=== PATIENT | female | born 1965 | race Caucasian/White ===

== ENCOUNTER → 2017-03-20 | Outpatient (CLI) | payer BC ==
[2017-03-20 19:34] LABS: ALT 36 U/L (9-52); AST 27 U/L (14-36); Alkaline Phosphatase 91 U/L (38-126); Anion Gap 11 mmol/L; Blood Urea Nitrogen 18 mg/dL (7-17); Calcium 9.9 mg/dL (8.4-10.2); Carbon Dioxide 29 mmol/L (22-30); Chloride 102 mmol/L (98-107); Cholesterol 226 mg/dL (<200); Glucose 88 mg/dL (74-99); HDL Cholesterol 90 mg/dL (40-60); Non-African American GFR(MDRD) >60 (>60 ml/min/1.73 sqM); Potassium 4.6 mmol/L (3.5-5.1); Sodium 142 mmol/L (137-145); Total Bilirubin 0.8 mg/dL (0.2-1.3); Total Protein 7.6 g/dL (6.3-8.2); Triglycerides 85 mg/dL (<150)
[2017-03-20 20:40] LABS: Vitamin B12 287 pg/mL (239-931)
[2017-03-20 22:30] LABS: Basophils % (A) 0 %; CH 28.8; CHCM 32.8; Eosinophils # (A) 0.2 k/uL (0-0.7); Eosinophils % (A) 2 %; HCT 47.2 % (34.0-46.0); HDW 2.45; HGB 15.7 gm/dL (11.4-16.0); Luc # (Auto) 0.17; Luc % (Auto) 2; Lymphocytes # (A) 1.7 k/uL (1.0-4.8); Lymphocytes % (A) 23 %; MCH 29.3 pg (25.0-35.0); MCHC 33.2 g/dL (31.0-37.0); MCV 88.2 fL (80.0-100.0); Mean Platelet Volume 7.7; Monocytes # (A) 0.5 k/uL (0-1.0); Monocytes % (A) 6 %; Neutrophils # (A) 4.8 k/uL (1.3-7.7); Neutrophils % (A) 66 %; RBC 5.36 m/uL (3.80-5.40); RDW 12.7 % (11.5-15.5); WBC 7.2 k/uL (3.8-10.6); WBC (Perox) 7.09
== END ==
LOC: MMGSC 12:25
PROVIDERS: ATTEND Family Medicine
DX: Z00.00 Encounter for general adult medical examination without abnormal findings (principal); N39.0 Urinary tract infection, site not specified; Z83.2 Family history of diseases of the blood and blood-forming organs and certain disorders involving the immune mechanism
CPT/HCPCS: 36415; 80053; 80061; 81241; 82607; 82746; 83090; 84439; 84443; 85025; 87086

== ENCOUNTER → 2018-01-22 | Outpatient (CLI) | payer BC ==
[2018-01-22 18:42] LABS: Basophils % (A) 0 %; Eosinophils # (A) 0.2 k/uL (0-0.7); Eosinophils % (A) 3 %; HCT 45.7 % (34.0-46.0); HGB 14.4 gm/dL (11.4-16.0); Lymphocytes # (A) 1.4 k/uL (1.0-4.8); Lymphocytes % (A) 21 %; MCH 27.7 pg (25.0-35.0); MCHC 31.4 g/dL (31.0-37.0); Mean Platelet Volume 7.4; Monocytes # (A) 0.4 k/uL (0-1.0); Monocytes % (A) 6 %; Neutrophils # (A) 4.4 k/uL (1.3-7.7); Neutrophils % (A) 68 %; Platelet Count 324 k/uL (150-450); RDW 13.2 % (11.5-15.5); WBC 6.5 k/uL (3.8-10.6)
[2018-01-22 18:48] LABS: ALT 30 U/L (9-52); AST 28 U/L (14-36); Albumin 4.3 g/dL (3.5-5.0); Alkaline Phosphatase 80 U/L (38-126); Anion Gap 11 mmol/L; Blood Urea Nitrogen 18 mg/dL (7-17); Calcium 9.6 mg/dL (8.4-10.2); Carbon Dioxide 28 mmol/L (22-30); Chloride 104 mmol/L (98-107); Cholesterol 206 mg/dL (<200); Glucose 94 mg/dL (74-99); HDL Cholesterol 84 mg/dL (40-60); LDL Cholesterol,Calculated 109 mg/dL (0-99); Potassium 4.5 mmol/L (3.5-5.1); Sodium 143 mmol/L (137-145); Total Bilirubin 0.7 mg/dL (0.2-1.3); Total Protein 7.2 g/dL (6.3-8.2); Triglycerides 65 mg/dL (<150)
[2018-01-22 18:58] LABS: T4, Free (Free Thyroxine) 0.95 ng/dL (0.78-2.19)
== END | disposition home or self-care (01) ==
LOC: MMGSC 09:35
PROVIDERS: ATTEND Family Medicine
DX: Z00.00 Encounter for general adult medical examination without abnormal findings (principal); R53.83 Other fatigue
CPT/HCPCS: 36415; 80053; 80061; 82306; 84439; 84443; 85025

== ENCOUNTER 2018-05-13 10:05 | Observation (INO) | payer BC ==
[2018-05-13] MEDS ORDERED: ASPIRIN 81 MG PO STA (10:10)
--- NOTE | 2018-05-13 10:24 | ED ---
Chest Pain HPI - General Chief Complaint: Chest Pain Stated Complaint: chest discomfort Time Seen by Provider: 05/13/18 10:10 Source: EMS Mode of arrival: EMS Limitations: no limitations - History of Present Illness Initial Comments: Patient presents with complaints of chest pressure on the left side. She also had some nausea, diaphoresis. She also had a syncopal episode this morning. She denies any belly or back pain. She has no pain or swelling in the legs or arms. She has no palpitations. She is tolerating oral intake. She denies any sick contacts or travel. She states that the syncopal episode, as well as an episode of bradycardia, occurred after using the bathroom. She denies any neck pain or stiffness. She has no change in vision or hearing. - Related Data Home Medications Medication Instructions Recorded Confirmed Ascorbic Acid [Vitamin C] 500 mg PO HS 05/13/18 05/13/18 Calcium/Magnesium 1 tab PO HS 05/13/18 05/13/18 Cholecalciferol [Vitamin D3] 1,000 unit PO HS 05/13/18 05/13/18 Allergies Allergy/AdvReac Type Severity Reaction Status Date / Time No Known Allergies Allergy Verified 05/13/18 10:48 Review of Systems ROS Statement: Those systems with pertinent positive or pertinent negative responses have been documented in the HPI. ROS Other: All systems not noted in ROS Statement are negative. EKG Findings - EKG Comments: EKG Findings:: Twelve-lead EKG shows ventricular rate 74 bpm, normal [place] interval and QRS complexes, no ST elevation or depression, interpreted by me as normal sinus rhythm. Past Medical History History of Any Multi-Drug Resistant Organisms: None Reported Past Surgical History: Hernia Repair Additional Past Surgical History / Comment(s): right mastectomy Past Psychological History: Anxiety Smoking Status: Never smoker Past Alcohol Use History: Daily Past Drug Use History: None Reported General Exam Limitations: no limitations General appearance: alert, in no apparent distress Head exam: Present: atraumatic, normocephalic, normal inspection Eye exam: Present: normal appearance, PERRL, EOMI. Absent: scleral icterus, conjunctival injection, periorbital swelling ENT exam: Present: normal exam, mucous membranes moist Neck exam: Present: normal inspection. Absent: tenderness, meningismus, lymphadenopathy Respiratory exam: Present: normal lung sounds bilaterally. Absent: respiratory distress, wheezes, rales, rhonchi, stridor Cardiovascular Exam: Present: regular rate, normal rhythm, normal heart sounds. Absent: systolic murmur, diastolic murmur, rubs, gallop, clicks GI/Abdominal exam: Present: soft, normal bowel sounds. Absent: distended, tenderness, guarding, rebound, rigid Extremities exam: Present: normal inspection, full ROM, normal capillary refill. Absent: tenderness, pedal edema, joint swelling, calf tenderness Back exam: Present: normal inspection Neurological exam: Present: alert, oriented X3, CN II-XII intact Psychiatric exam: Present: normal affect, normal mood Skin exam: Present: warm, dry, intact, normal color. 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 EKG is unremarkable. Laboratory studies were outside hospital are normal. Patient will be admitted to the hospital. Disposition Clinical Impression: Chest pain Disposition: ADMITTED IP TO THIS HOSP Condition: Fair Is patient prescribed a controlled substance at d/c from ED?: No Referrals: Maxine Beck MD [Primary Care Provider] - 1-2 days
[2018-05-13 10:52] LABS: Basophils % (A) 0 %; Eosinophils # (A) 0.1 k/uL (0-0.7); Eosinophils % (A) 1 %; HGB 14.7 gm/dL (11.4-16.0); Lymphocytes # (A) 1.2 k/uL (1.0-4.8); Lymphocytes % (A) 12 %; MCHC 33.5 g/dL (31.0-37.0); MCV 86.5 fL (80.0-100.0); Mean Platelet Volume 6.8; Monocytes # (A) 0.3 k/uL (0-1.0); Monocytes % (A) 3 %; Neutrophils # (A) 8.1 k/uL (1.3-7.7); Neutrophils % (A) 83 %; Platelet Count 371 k/uL (150-450); RBC 5.08 m/uL (3.80-5.40); RDW 13.5 % (11.5-15.5); WBC 9.8 k/uL (3.8-10.6)
[2018-05-13 11:02] LABS: ALT 45 U/L (9-52); AST 30 U/L (14-36); Alkaline Phosphatase 64 U/L (38-126); Blood Urea Nitrogen 17 mg/dL (7-17); Chloride 109 mmol/L (98-107); Glucose 116 mg/dL (74-99); Magnesium 1.7 mg/dL (1.6-2.3); Potassium 4.5 mmol/L (3.5-5.1); Sodium 145 mmol/L (137-145); Total Bilirubin 0.5 mg/dL (0.2-1.3); Total Protein 6.6 g/dL (6.3-8.2)
[2018-05-13 11:04] LABS: Appearance,Urine Clear (Clear); Bilirubin,Urine Negative (Negative); Blood,Urine Negative (Negative); Color,Urine Colorless; Glucose,Urine (UA) Negative (Negative); Ketones,Urine Negative (Negative); Leukocyte Esterase,Urine Trace (Negative); Mucus,Urine Rare /hpf; Nitrite,Urine Negative (Negative); PH, Urine 6.5 (5.0-8.0); Protein,Urine Negative (Negative); Specific Gravity,Urine 1.008 (1.001-1.035); Squamous Epithelial Cell,Urine <1 /hpf (0-4); Urobilinogen,Urine <2.0 mg/dL (<2.0); WBC,Urine 2 /hpf (0-5)
[2018-05-13 11:06] LABS: Partial Thromboplastin Time 75.8 sec (22.0-30.0)
--- NOTE | 2018-05-13 11:15 | XR ---
EXAMINATION TYPE: XR chest 2V DATE OF EXAM: 05/13/2018 COMPARISON: NONE HISTORY: Chest pain TECHNIQUE: Frontal and lateral views of the chest are obtained. FINDINGS: There is no focal air space opacity, pleural effusion, or pneumothorax seen. The cardiac silhouette size is within normal limits. The osseous structures are intact. IMPRESSION: No acute cardiopulmonary process.
[2018-05-13 11:36] LABS: Anion Gap 15 mmol/L; Carbon Dioxide 21 mmol/L (22-30)
[2018-05-13] MEDS ORDERED: ACETAMINOPHEN TAB 325 MG TAB PO PRN (12:45)
[2018-05-13] MEDS ORDERED: NALOXONE 0.4 MG/ML 1 ML VIAL IV PRN (12:45)
[2018-05-13] MEDS ORDERED: traMADol 50 MG TAB PO PRN (12:45)
[2018-05-13] MEDS ORDERED: REGADENOSON 0.4 MG/5 ML SYRINGE IV ONE (12:53)
[2018-05-13] MEDS ORDERED: AMINOPHYLLINE 500 MG/20 ML VIAL IV PRN (12:53)
--- NOTE | 2018-05-13 12:56 | P.HPIM ---
History of Present Illness H&P Date: 05/13/18 Chief Complaint: Chest pain 53-year-old female with no significant past medical history presented to emergency department because of intermittent chest pressure on the left side. It started around 5 AM in the morning when she was going back to her bed from the bathroom. It was associated with some nausea, diaphoresis, severe dizziness as well as a syncopal episode this morning. Her held her from falling and immediately she regained consciousness. Chest pain doesn't radiate anywhere. She never had before. She denies any belly or back pain. She has no pain or swelling in the legs or arms. She has no palpitations. She denies any sick contacts or travel. When EMS arrived they found her heart rate to be in the 30s according to the . No urinary symptoms, no focal weakness or numbness, no slurred speech. No blurry or double vision. Review of Systems 12 point review of system performed, negative except for HPI Past Medical History Additional Past Medical History / Comment(s): History of breast cancer status post resection History of Any Multi-Drug Resistant Organisms: None Reported Past Surgical History: Hernia Repair Additional Past Surgical History / Comment(s): right mastectomy Past Psychological History: Anxiety Smoking Status: Never smoker Past Alcohol Use History: Daily Past Drug Use History: None Reported - Past Family History Mother Family Medical History: Coronary Artery Disease (CAD) Medications and Allergies Home Medications Medication Instructions Recorded Confirmed Type Ascorbic Acid [Vitamin C] 500 mg PO HS 05/13/18 05/13/18 History Calcium/Magnesium 1 tab PO 05/13/18 05/13/18 History Cholecalciferol [Vitamin D3] 1,000 unit PO 05/13/18 05/13/18 History Allergies Allergy/AdvReac Type Severity Reaction Status Date / Time No Known Allergies Allergy Verified 05/13/18 10:48 Physical Exam Vitals: Vital Signs Temp Pulse Pulse Resp BP Pulse Ox 05/13/18 12:42 74 18 119/73 98 05/13/18 10:46 72 05/13/18 10:08 97.7 F 83 18 122/77 96 Intake and Output 05/12/18 05/13/18 05/13/18 22:59 06:59 14:59 Other: Weight 70.307 kg Constitutional: No acute distress, conversant, pleasant Eyes:Anicteric sclerae, moist conjunctiva, no lid-lag, PERRLA, ENMT: Oropharynx clear, no erythema, exudates Neck: Supple, FROM, no masses, or JVD, No carotid bruits, No thyromegaly Lungs: Clear to auscultation, Clear to percussion, Normal respiratory effort, no accessory muscle use Cardiovascular: Heart regular in rate and rhythm, No murmurs, gallops, or rubs, No peripheral edema Abdominal: Soft, Nontender, no guarding, rebound or rigidity, Normoactive bowel sounds, No hepatomegaly, No splenomegaly, No palpable mass Skin: Normal temperature, tone, texture, turgor, no induration, No subcutaneous nodules, No rash, lesions, No ulcers Extremities: No digital cyanosis, No clubbing, Pedal pulses intact and symmetrical, Radial pulses intact and symmetrical, No calf tenderness Psychiatric: Alert and oriented to person, place and time, appropriate affect, intact judgement Neuro: Muscles Strength 5/5 in all 4 extremities, Sensation to light touch grossly present throughout, Cranial nerves II-XII grossly intact, no focal sensory deficits Results CBC & Chem 7: 05/13/18 10:34 05/13/18 10:34 Labs: Abnormal Lab Results - Last 24 Hours (Table) 05/13/18 05/13/18 05/13/18 Range/Units 10:34 10:34 10:34 Neutrophils # 8.1 H (1.3-7.7) k/uL APTT 75.8 H (22.0-30.0) sec Chloride 109 H (98-107) mmol/L Carbon Dioxide 21 L (22-30) mmol/L Glucose 116 H (74-99) mg/dL Ur Leukocyte Esterase (Negative) Urine Mucus (None) /hpf 05/13/18 Range/Units 10:34 Neutrophils # (1.3-7.7) k/uL APTT (22.0-30.0) sec Chloride (98-107) mmol/L Carbon Dioxide (22-30) mmol/L Glucose (74-99) mg/dL Ur Leukocyte Esterase Trace H (Negative) Urine Mucus Rare H (None) /hpf Assessment and Plan Plan: Acute chest pain/syncope Initial troponin negative, and EKG reviewed, no acute changes Cycle troponins Admit to observation on telemetry Echocardiogram Stress test Cardio consult Health maintenance Check TSH, A1c, lipid profile Blood pressure is stable
[2018-05-13 19:53] LABS: Hemoglobin A1C 5.9 % (4.0-6.0)
[2018-05-14 07:30] LABS: Basophils % (A) 0 %; Eosinophils # (A) 0.1 k/uL (0-0.7); Eosinophils % (A) 2 %; HCT 44.8 % (34.0-46.0); HGB 14.7 gm/dL (11.4-16.0); Lymphocytes # (A) 2.1 k/uL (1.0-4.8); Lymphocytes % (A) 25 %; MCHC 32.9 g/dL (31.0-37.0); MCV 88.1 fL (80.0-100.0); Mean Platelet Volume 6.5; Monocytes # (A) 0.6 k/uL (0-1.0); Monocytes % (A) 7 %; Neutrophils # (A) 5.5 k/uL (1.3-7.7); Neutrophils % (A) 65 %; Platelet Count 338 k/uL (150-450); RBC 5.08 m/uL (3.80-5.40); RDW 14.3 % (11.5-15.5); WBC 8.5 k/uL (3.8-10.6)
[2018-05-14 07:44] LABS: ALT 46 U/L (9-52); AST 30 U/L (14-36); Albumin 4.4 g/dL (3.5-5.0); Alkaline Phosphatase 70 U/L (38-126); Anion Gap 12 mmol/L; Blood Urea Nitrogen 15 mg/dL (7-17); Calcium 9.7 mg/dL (8.4-10.2); Carbon Dioxide 24 mmol/L (22-30); Chloride 105 mmol/L (98-107); Glucose 99 mg/dL (74-99); Magnesium 1.9 mg/dL (1.6-2.3); Phosphorus 4.1 mg/dL (2.5-4.5); Potassium 4.4 mmol/L (3.5-5.1); Sodium 141 mmol/L (137-145); Total Bilirubin 0.6 mg/dL (0.2-1.3)
--- NOTE | 2018-05-14 11:11 | P.CRDCN ---
History of Present Illness History of present illness: Mrs. Almanzar is a pleasant 53-year-old female past medical history significant for breast cancer status post mastectomy and reconstruction. She denies history of coronary artery disease and has never seen a position description manager for any reason. We have been asked to see her in consultation for chest pain. She states she woke up around 0300 with an ache in the left anterior chest wall. She walked and used the bathroom without incident. She woke up again around 0530 with a similar ache in her chest but this time she felt nauseated as well. She walked to the restroom and her walked with her. Next thing she can recall she passed out and he caught her. She denies palpitations, dizziness or diaphoresis prior to passing out. She went to the ED at [facility] and while she was transferring from the bed to the commode she started to feel nauseated again and they told her her heart rate went down to 30. She was sent here for further evaluation by cardiology. She denies any further symptoms of chest pain, nausea or syncope since arriving here. She denies ever having had shortness of breath, palpitations, vomiting, diaphoresis or dizziness. EKG reveals sinus mechanism with no acute ST or T-wave abnormalities. Telemetry tracings have been unremarkable. Chest xray is negative for an acute cardiopulmonary process. She apparently underwent a CT angios of [facility] negative for pulmonary embolism. Laboratory data reviewed, and 14.7, platelets 338, sodium 141, potassium 4.4, magnesium 1.9, creatinine 0.7, cardiac enzymes negative 3, LDL 118, HDL 87, total cholesterol 211, TSH 3.15. She takes no daily prescription medication. Review of Systems At the time of my exam: CONSTITUTIONAL: Denies fever. Denies chills. EYES: Denies blurred vision. Denies vision changes. Denies eye pain. EARS, NOSE, MOUTH & THROAT: Denies headache. Denies sore throat. Denies ear pain. CARDIOVASCULAR: Denies chest pain. Denies shortness of breath. Denies orthopnea. Denies PND. Denies palpitations. RESPIRATORY: Denies cough. GASTROINTESTINAL: Denies abdominal pain. Denies diarrhea. Denies constipation. Denies nausea. Denies vomiting. MUSCULOSKELETAL: Denies myalgias. INTEGUMENTARY: Denies pruitis. Denies rash. NEUROLOGIC: Denies numbness. Denies tingling. Denies weakness. PSYCHIATRIC: Denies anxiety. Denies depression. ENDOCRINE: Denies fatigue. Denies weight change. Denies polydipsia. Denies polyurina. GENITOURINARY: Denies burning, hematuria or urgency with micturation. HEMATOLOGIC: Denies history of anemia. Denies bleeding. 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 frequent urination- has tilted bladder. History of Any Multi-Drug Resistant Organisms: None Reported Past Surgical History: Hernia Repair, Tonsillectomy Additional Past Surgical History / Comment(s): right mastectomy and reconstructive sx, x2 umb hernia repairs, Past Anesthesia/Blood Transfusion Reactions: No Reported Reaction Additional Past Anesthesia/Blood Transfusion Reaction / Comment(s): clausterphobia Smoking Status: Former smoker - Past Family History Mother Family Medical History: Coronary Artery Disease (CAD), Hyperlipidemia Father Family Medical History: COPD Additional Family Medical History / Comment(s): tested positive -hypocystiene- prone to blood clots Medications and Allergies Home Medications Medication Instructions Recorded Confirmed Type Ascorbic Acid [Vitamin C] 500 mg PO HS 05/13/18 05/13/18 History Calcium/Magnesium 1 tab PO HS 05/13/18 05/13/18 History Cholecalciferol [Vitamin D3] 1,000 unit PO HS 05/13/18 05/13/18 History Allergies Allergy/AdvReac Type Severity Reaction Status Date / Time No Known Allergies Allergy Verified 05/13/18 10:48 Physical Exam Vitals: Vital Signs Temp Pulse Pulse Pulse Pulse Pulse Pulse 05/14/18 04:00 60 05/14/18 03:53 98.2 F 66 05/14/18 00:00 52 L 05/13/18 23:45 98.0 F 69 05/13/18 20:00 72 82 05/13/18 18:30 82 78 78 05/13/18 14:10 98.0 F 80 05/13/18 13:41 97.6 F 72 05/13/18 12:42 74 05/13/18 10:46 72 05/13/18 10:08 97.7 F 83 Resp BP BP BP BP BP Pulse Ox 05/14/18 04:00 16 05/14/18 03:53 16 118/69 99 05/14/18 00:00 16 05/13/18 23:45 16 132/79 100 05/13/18 20:00 18 05/13/18 18:30 18 127/81 153/85 133/68 100 05/13/18 14:10 18 124/81 100 05/13/18 13:41 18 119/72 99 05/13/18 12:42 18 119/73 98 05/13/18 10:46 05/13/18 10:08 18 122/77 96 Intake and Output 05/13/18 05/14/18 05/14/18 22:59 06:59 14:59 Intake Total 600 Balance 600 Intake: Oral 600 Other: # Voids 2 1 Blood pressure 98/71 heart rate 66 afebrile maintaining oxygen saturation on room air GENERAL: This is a 53-year-old female in no apparent distress at the time of my examination. HEENT: Head is atraumatic, normocephalic. Pupils are equal, round. Sclerae anicteric. Conjunctivae are clear. Mucous membranes of the mouth are moist. Neck is supple. There is no jugular venous distention. No carotid bruit is heard. LUNGS: Clear to auscultation no wheezes, rales or rhonchi. No chest wall tenderness is noted on palpation or with deep breathing. HEART: Regular rate and rhythm without murmurs, rubs or gallops. S1 and S2 heard. ABDOMEN: Soft, nontender. Bowel sounds are heard. No organomegaly noted. EXTREMITIES: No evidence of peripheral edema and no calf tenderness noted. VASCULAR: Radial and dorsalis pedis pulses palpated, no evidence of clubbing. NEUROLOGIC: Patient is awake, alert and oriented x3. Results 05/14/18 06:08 05/14/18 06:08 Cardiac Enzymes 05/13/18 05/13/18 05/13/18 Range/Units 10:34 10:34 16:05 AST 30 (14-36) U/L Troponin I <0.012 <0.012 (0.000-0.034) ng/mL 05/13/18 05/14/18 Range/Units 21:58 06:08 AST 30 (14-36) U/L Troponin I <0.012 (0.000-0.034) ng/mL Coagulation 05/13/18 Range/Units 10:34 PT 10.0 (9.0-12.0) sec APTT 75.8 H (22.0-30.0) sec Lipids 05/13/18 Range/Units 10:34 Triglycerides 31 (<150) mg/dL Cholesterol 211 H (<200) mg/dL HDL Cholesterol 87 H (40-60) mg/dL CBC 05/13/18 05/14/18 Range/Units 10:34 06:08 WBC 9.8 8.5 (3.8-10.6) k/uL RBC 5.08 5.08 (3.80-5.40) m/uL Hgb 14.7 14.7 (11.4-16.0) gm/dL Hct 44.0 44.8 (34.0-46.0) % Plt Count 371 338 (150-450) k/uL Comprehensive Metabolic Panel 05/13/18 05/14/18 Range/Units 10:34 06:08 Sodium 145 141 (137-145) mmol/L Potassium 4.5 4.4 (3.5-5.1) mmol/L Chloride 109 H 105 (98-107) mmol/L Carbon Dioxide 21 L 24 (22-30) mmol/L BUN 17 15 (7-17) mg/dL Creatinine 0.58 0.70 (0.52-1.04) mg/dL Glucose 116 H 99 (74-99) mg/dL Calcium 9.0 9.7 (8.4-10.2) mg/dL AST 30 30 (14-36) U/L ALT 45 46 (9-52) U/L Alkaline Phosphatase 64 70 (38-126) U/L Total Protein 6.6 7.0 (6.3-8.2) g/dL Albumin 4.0 4.4 (3.5-5.0) g/dL Current Medications Generic Name Dose Route Start Last Admin Trade Name Freq PRN Reason Stop Dose Admin Acetaminophen 650 mg 05/13/18 12:45 Tylenol Tab PO Q6HR PRN Mild Pain or Fever > 100.5 Aminophylline 100 mg 05/13/18 12:53 Aminophylline IV 06/12/18 12:54 ONCE PRN Patient Response Naloxone HCl 0.2 mg 05/13/18 12:45 Narcan IV Q2M PRN Opioid Reversal Tramadol HCl 50 mg 05/13/18 12:45 Ultram PO Q6H PRN Moderate Pain Intake and Output 05/13/18 05/14/18 05/14/18 22:59 06:59 14:59 Intake Total 600 Balance 600 Intake: Oral 600 Other: # Voids 2 1 05/14/18 06:08 05/14/18 06:08 Assessment and Plan Assessment: ASSESSMENT 1. Chest pain, atypical. An acute coronary event has been ruled out with no EKG evidence of ischemia and negative cardiac enzymes 2. Syncopal episode, possible vasovagal syncope 3. History of breast cancer 4. Dyslipidemia PLAN Echocardiogram has been obtained and will be reviewed. Perform stress echocardiogram to assess for stress induced cardiac ischemia. Recommend lifestyle modifications for lowering of LDL cholesterol. If stress test is normal an event monitor will be ordered for 7 days and she can be discharged home to follow up with Dr. Palacios in 2-3 weeks. Thank you kindly for this consultation. Nurse Practitioner note has been reviewed, I agree with a documented findings and plan of care. Patient was seen and examined. Time with Patient: Greater than 30
[2018-05-14 11:53] VITALS: BP 113/74; PULSE 91; RESP 16; TEMP 97.9
--- NOTE | 2018-05-14 14:53 | P.STRESS ---
- Stress Test Note Stress Test Results/Findings: Exam Performed: stress echo exercise Exam Date: 05/14/18 Reason for Exam: SYNCOPE Height: 5 ft 5 in Weight: 70.307 kg Protocol: STRESS ECHO Stage: III Duration of Exercise: 8 Resting Heart Rate: 80 Resting Blood Pressure: 129/74 Maximum Achieved Heart Rate: 150 Maximum Achieved Blood Pressure: 189/77 85% PMHR: 91 100% PMHR: 165 METS: 9.6 Technologist Comment: Stress Test Results/Findings: This is a 53-year-old female with history of hypercholesterolemia and family history being evaluated for symptoms of chest pain and palpitations. Stress data: Baseline EKG showed sinus rhythm with normal [place] interval, QRS duration. EKGs taken during and after exercise did not reveal any significant changes to suggest ischemia. Echo data: Baseline echo images are suboptimal, especially parasternal views. Overall there appears to be normal wall motion and thickening. Exercise echo images showed augmentation of wall motion and thickening in all the segments. Final impression: #1. Negative stress test #2. Negative stress echo.
--- NOTE | 2018-05-14 15:11 | ECHOF ---
Referral Reason:syncope, chest pain MEASUREMENTS -------- HEIGHT: 165.1 cm WEIGHT: 70.3 kg BP: 119/73 RVIDd: 2.7 cm (< 3.3) IVSd: 1.1 cm (0.6 - 1.1) LVIDd: 3.6 cm (3.9 - 5.3) LVPWd: 1.0 cm (0.6 - 1.1) IVSs: 1.5 cm LVIDs: 2.2 cm LVPWs: 1.7 cm LA Diam: 2.7 cm (2.7 - 3.8) LAESV Index (A-L): 13.45 ml/m Ao Diam: 2.8 cm (2.0 - 3.7) AV Cusp: 1.9 cm (1.5 - 2.6) MV EXCURSION: 18.612 mm (> 18.000) MV EF SLOPE: 87 mm/s (70 - 150) EPSS: 0.3 cm MV E Suleiman: 0.80 m/s MV DecT: 228 ms MV A Suleiman: 0.83 m/s MV E/A Ratio: 0.96 FINDINGS -------- Sinus rhythm. This was a technically good study. The left ventricular size is normal. There is borderline concentric left ventricular hypertrophy. Overall left ventricular systolic function is normal with, an EF between 60 - 65 %. The right ventricle is normal in size. Normal LA size by volume 22+/-6 ml/m2. The right atrium is normal in size. The aortic valve is trileaflet and appears structurally normal. Mild mitral annular calcification present. The tricuspid valve appears structurally normal. There is no pulmonic regurgitation present. The aortic root size is normal. Normal inferior vena cava with normal inspiratory collapse consistent with estimated right atrial pre ssure of 5 mmHg. There is no pericardial effusion. CONCLUSIONS -------- 1. Sinus rhythm. 2. This was a technically good study. 3. The left ventricular size is normal. 4. There is borderline concentric left ventricular hypertrophy. 5. Overall left ventricular systolic function is normal with, an EF between 60 - 65 %. 6. The right ventricle is normal in size. 7. Normal LA size by volume 22+/-6 ml/m2. 8. The right atrium is normal in size. 9. The aortic valve is trileaflet and appears structurally normal. 10. Mild mitral annular calcification present. 11. The tricuspid valve appears structurally normal. 12. There is no pulmonic regurgitation present. 13. The aortic root size is normal. 14. Normal inferior vena cava with normal inspiratory collapse consistent with estimated right atrial pressure of 5 mmHg. 15. There is no pericardial effusion. DATA ENTRY PROCESSOR: Dora Escalante RDCS
--- NOTE | 2018-05-15 08:04 | P.DS ---
Providers Date of admission: 05/13/18 10:59 Expected date of discharge: 05/14/18 Attending physician: Mary Jo Hawk MD Consults: 05/13/18 12:47 Consult Physician Routine Consulting Provider: uYsef Burgess Consult Reason/Comments: cp Do you want consulting provider notified?: Yes Primary care physician: General Acute Hospital Course: 53-year-old female with no significant past medical history presented to emergency department because of intermittent chest pressure on the left side. It started around 5 AM in the morning when she was going back to her bed from the bathroom. It was associated with some nausea, diaphoresis, severe dizziness as well as a syncopal episode this morning. Her held her from falling and immediately she regained consciousness. Chest pain doesn't radiate anywhere. She never had before. She denies any belly or back pain. She has no pain or swelling in the legs or arms. She has no palpitations. She denies any sick contacts or travel. When EMS arrived they found her heart rate to be in the 30s according to the . No urinary symptoms, no focal weakness or numbness, no slurred speech. No blurry or double vision. Patient again has no past medical history and she takes no daily prescription medication. Patient initially went to [facility] emergency department, EKG reveals sinus mechanism with no acute ST or T-wave abnormalities. She apparently underwent a CT angios of [facility] negative for pulmonary embolism. Throughout the admission telemetry tracings have been unremarkable. Chest xray was negative for an acute cardiopulmonary process. Laboratory data revealed no leukocytosis, platelets 338, sodium 141, potassium 4.4, magnesium 1.9, creatinine 0.7, cardiac enzymes negative 3, LDL 118, HDL 87, total cholesterol 211, TSH 3.15. Patient was evaluated by cardiology, she underwent extensive evaluation with echocardiogram as well as echo stress testing and both came back unremarkable. Patient did not have any recurrent symptoms throughout the hospitalization. She was cleared by cardiology for discharge after the results came back. She was told to come back to emergency department if she has any further episodes of chest pain or shortness of breath. Discharge diagnoses Atypical chest pain Sinus bradycardia likely vasovagal Patient Condition at Discharge: Fair Plan - Discharge Summary Discharge Rx Participant: No New Discharge Prescriptions: No Action Cholecalciferol [Vitamin D3] 1,000 unit PO HS Ascorbic Acid [Vitamin C] 500 mg PO HS Calcium/Magnesium 1 tab PO HS Discharge Medication List Ascorbic Acid [Vitamin C] 500 mg PO HS 05/13/18 [History] Calcium/Magnesium 1 tab PO HS 05/13/18 [History] Cholecalciferol [Vitamin D3] 1,000 unit PO HS 05/13/18 [History] Follow up Appointment(s)/Referral(s): Maxine Beck MD [Primary Care Provider] - 1-2 days Pily Palacios MD [STAFF PHYSICIAN] - 05/25/18 3:00 pm Patient Instructions/Handouts: Chest Pain (DC), Syncope (DC)
--- NOTE | 2018-05-20 11:02 | ECHOS ---
Stress Test Results/Findings: Exam Performed: stress echo exercise Exam Date: 05/14/18 Reason for Exam: SYNCOPE Height: 5 ft 5 in Weight: 70.307 kg Protocol: STRESS ECHO Stage: III Duration of Exercise: 8 Resting Heart Rate: 80 Resting Blood Pressure: 129/74 Maximum Achieved Heart Rate: 150 Maximum Achieved Blood Pressure: 189/77 85% PMHR: 91 100% PMHR: 165 METS: 9.6 Technologist Comment: Stress Test Results/Findings: This is a 53-year-old female with history of hypercholesterolemia and family history being evaluated for symptoms of chest pain and palpitations. Stress data: Baseline EKG showed sinus rhythm with normal [place] interval, QRS duration. EKGs taken during and after exercise did not reveal any significant changes to suggest ischemia. Echo data: Baseline echo images are suboptimal, especially parasternal views. Overall there appears to be normal wall motion and thickening. Exercise echo images showed augmentation of wall motion and thickening in all the segments. Final impression: #1. Negative stress test #2. Negative stress echo. SADI
== END 2018-05-14 15:30 ==
LOC: EC 10:05 → 3OBS 10:59
PROVIDERS: ADMIT Internal Medicine; ATTEND Internal Medicine
DX: R07.89 Other chest pain (principal); R00.1 Bradycardia, unspecified; R61 Generalized hyperhidrosis; R11.0 Nausea; E78.5 Hyperlipidemia, unspecified; F41.9 Anxiety disorder, unspecified; M19.042 Primary osteoarthritis, left hand; M19.041 Primary osteoarthritis, right hand; M47.9 Spondylosis, unspecified; L40.9 Psoriasis, unspecified; R35.0 Frequency of micturition; Z85.3 Personal history of malignant neoplasm of breast; Z90.11 Acquired absence of right breast and nipple; Z87.891 Personal history of nicotine dependence; Z82.5 Family history of asthma and other chronic lower respiratory diseases; Z82.49 Family history of ischemic heart disease and other diseases of the circulatory system; Z83.49 Family history of other endocrine, nutritional and metabolic diseases
CPT/HCPCS: 99285 ×2; 36415; 93005; 93306; 93270; 93271; 93351; 83880; 80061; 80053 ×2; 84443; 83735 ×2; 84100; 84484; 85025 ×2; 85610; 85730; 81001; 83036; 71046; G0378 ×2